=== PATIENT | female | born 1980 | race Asian ===

== ENCOUNTER 2018-09-23 09:29 | Emergency (ER) | payer MEDICAID ==
[~2018-09-23] VITALS: Ht 154.9 cm; Wt 64.0 kg
[2018-09-23] MEDS ORDERED: ONDA4TAB13 SL (10:45)
[2018-09-23] MEDS ORDERED: GUAI600T31 PO (10:45)
[2018-09-23] MEDS ORDERED: BUPR150T73 PO (10:45)
[2018-09-23] MEDS ORDERED: FLUT15.88 NS (10:45)
[2018-09-23] MEDS ORDERED: CLON0.5T11 PO (10:45)
[2018-09-23] MEDS ORDERED: ONDANSETRON ODT 4 MG PO ONE (11:00)
--- NOTE | 2018-09-23 11:04 | NUR ---
PT BACK FROM XRAY, RESTING IN BED. DENIES NEEDS. CALL LIGHT IN REACH.
[2018-09-23 11:20] LABS: BASOPHILS # (AUTO) 0.02 x10^3/uL (0-0.1); BASOPHILS % (AUTO) 0 % (0-1); EOSINOPHILS # (AUTO) 0.28 x10^3/uL (0-0.4); EOSINOPHILS % (AUTO) 4 % (1-7); LYMPHOCYTES # (AUTO) 1.81 x10^3/uL (1-3.4); LYMPHOCYTES % (AUTO) 28 % (22-44); MD NO; MEAN CORPUSCULAR HEMOGLOBIN 29.4 pg (27.0-34.8); MEAN CORPUSCULAR HGB CONC 33.6 g/dL (32.4-35.8); MEAN CORPUSCULAR VOLUME 87.5 fL (80-100); MEAN PLATELET VOLUME 7.4 fL (7.4-10.4); MONOCYTES # (AUTO) 0.43 x10^3/uL (0.2-0.8); MONOCYTES % (AUTO) 7 % (2-9); NEUTROPHILS # (AUTO) 3.98 x10^3/uL (1.8-6.8); NEUTROPHILS % (AUTO) 61 % (42-75); PLATELET COUNT 300 x10^3/uL (130-400); RED BLOOD COUNT 4.58 x10^6/uL (3.82-5.3); RED CELL DISTRIBUTION WIDTH 12.7 % (9.6-15.2)
[2018-09-23] MEDS ORDERED: ONDANSETRON ODT 4 MG ONE (11:20)
[2018-09-23 11:28] LABS: MICROSCOPIC NOT IND
[2018-09-23 11:31] LABS: CULTURE INDICATED? NO
[2018-09-23 11:31] LABS: ALANINE AMINOTRANSFERASE 22 U/L (12-78); ANION GAP 7 mmol/L (5-15); CALCIUM 9.2 mg/dL (8.5-10.1); CHLORIDE 108 mmol/L (98-107); CREATININE 0.63 mg/dL (0.55-1.02)
[2018-09-23 11:36] LABS: ALKALINE PHOSPHATASE 47 U/L (45-117); BILIRUBIN,TOTAL 0.5 mg/dL (0.2-1.0); TOTAL PROTEIN 7.7 g/dL (6.4-8.2)
[2018-09-23 12:42] VITALS: BP 118/80
== END 2018-09-23 12:53 | disposition home or self-care (01) ==
LOC: ED 12:15
DX: K52.89 Other specified noninfective gastroenteritis and colitis (principal); R51 Headache
CPT/HCPCS: 36415; 74021; 80053; 81003; 83690; 84703; 85025; 99284; Q0162